=== PATIENT | female | born 1990 | race African-American/Black ===

== ENCOUNTER 2016-06-16 13:24 | Emergency (ER) | payer MEDICAID, OTHER ==
[~2016-06-16] VITALS: Ht 160 cm; Wt 105.0 kg
[~2016-06-16 13:24] MED LIST: IBUP800T23 PO; ROBA750T3 PO; Z.0.NO CURRENT MEDS
[2016-06-16 13:32] VITALS: BP 134/86; PULSE 59; RESP 17; TEMP 98; O2SAT 99
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
== END 2016-06-16 14:40 | disposition home or self-care (01) ==
LOC: NEPE 13:24
DX: O20.0 Threatened abortion (principal); Z3A.01 Less than 8 weeks gestation of pregnancy
CPT/HCPCS: 99283

== ENCOUNTER 2016-07-11 21:29 | Emergency (ER) | payer MEDICAID, OTHER ==
[~2016-07-11] VITALS: Ht 160 cm; Wt 101.0 kg
[2016-07-11 21:31] VITALS: BP 133/67; PULSE 94; RESP 16; TEMP 97.8; O2SAT 96
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
[2016-07-12] MEDS ORDERED: ACETAMINOPHEN 325 MG TAB PO ONE (01:15)
== END 2016-07-12 01:36 | disposition home or self-care (01) ==
LOC: NEPA 21:29
DX: O26.891 Other specified pregnancy related conditions, first trimester (principal); S00.83XA Contusion of other part of head, initial encounter; H11.31 Conjunctival hemorrhage, right eye; Y04.2XXA Assault by strike against or bumped into by another person, initial encounter; Y93.9 Activity, unspecified; Y92.9 Unspecified place or not applicable; Y99.9 Unspecified external cause status; Z33.1 Pregnant state, incidental
CPT/HCPCS: 70450; 70486

== ENCOUNTER 2016-10-01 17:13 | Emergency (ER) | payer MEDICAID, OTHER ==
[~2016-10-01] VITALS: Ht 160 cm; Wt 109.0 kg
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
[2016-10-01 18:36] LABS: BETA HCG QUANT 3824 MIU/ML (0-5)
== END 2016-10-01 19:09 | disposition home or self-care (01) ==
LOC: NEPD 17:13
DX: O20.0 Threatened abortion (principal); Z3A.01 Less than 8 weeks gestation of pregnancy
CPT/HCPCS: 84702; 84703

== ENCOUNTER 2016-10-23 17:12 | Emergency (ER) | payer MEDICAID ==
[2016-10-23 17:13] VITALS: BP 151/89; PULSE 89; RESP 15; TEMP 98.2; O2SAT 98
[2016-10-23 18:38] LABS: BACTERIA, URINE RARE /hpf; BLOOD, URINE LARGE (NEG); COMMENT (UR) CULTURE INDICATED; CULTURE IF INDICATED CULTURE INDICATED; GLUCOSE,URINE NEG (NEG); KETONE, URINE NEG (NEG); MUCUS URINE FEW /lpf (OCC); NITRITE,URINE NEG (NEG); SQUAMOUS EPITHELIAL CELL URINE 8 /hpf (0-5); URINE COLOR YELLOW (YELLW/STRAW)
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
[2016-10-23 21:22] LABS: ALKALINE PHOSPHATASE 64 U/L (45-117); ALT (GPT) 19 U/L (10-53); TOTAL BILIRUBIN ADULT 0.4 MG/DL (0.2-1.0)
[2016-10-23 21:25] LABS: ANION GAP 10 MEQ/L (5-15); AST (GOT) 42 U/L (15-37); BICARBONATE 21.2 MEQ/L (21.0-32.0); BLOOD UREA NITROGEN 6 MG/DL (7-18); CHLORIDE 104 MEQ/L (98-107); GLOMERULAR FILTRATION RATE 135 ML/MIN (>89); SODIUM (NA) 135 MEQ/L (136-145)
[2016-10-23 21:28] LABS: POTASSIUM 4.8 MEQ/L (3.5-5.1)
[2016-10-23 21:34] LABS: BETA HCG QUANT 12459 MIU/ML (0-5)
[2016-10-23 21:43] LABS: AUTOMATED NEUTROPHIL # 6.3 TH/MM3 (1.8-7.7); BASOPHIL # 0.2 TH/MM3 (0-0.2); BASOPHIL % 1.9 % (0.0-2.0); EOSINOPHIL # 0.1 TH/MM3 (0-0.4); EOSINOPHIL % 1.1 % (0.0-4.0); HEMATOCRIT 33.5 % (35.0-46.0); LYMPH % 17.8 % (9.0-44.0); LYMPHOCYTE # 1.5 TH/MM3 (1.0-4.8); MEAN CELL VOLUME 85.8 FL (80.0-100.0); MEAN CORPUSCULAR HEMOGLOBIN 28.8 PG (27.0-34.0); MEAN CORPUSCULAR HGB CONC 33.5 % (32.0-36.0); MONO % 6.3 % (0.0-8.0); NEUT % 72.9 % (16.0-70.0); PLATELET COUNT 256 TH/MM3 (150-450); RED CELL DISTRIBUTION WIDTH 13.6 % (11.6-17.2); WHITE BLOOD COUNT 8.6 TH/MM3 (4.0-11.0)
[2016-10-23] MEDS ORDERED: metroNIDAZOLE 500 MG TAB PO ONE (21:45)
[2016-10-23 21:46] LABS: HEMO FLAGS AUTO DIFF
[2016-10-23 22:10] LABS: PLATELET ESTIMATE SMEAR NORMAL (NORMAL); PLATELET MORPHOLOGY NORMAL (NORMAL); SCAN/DIFF AUTO DIFF CONFIRMED
--- NOTE | 2016-10-23 22:43 | RADRPT ---
EXAM DATE/TIME: 10/23/2016 21:50 [facility] COMPARISON: No previous studies available for comparison. INDICATIONS : Pelvic pain and spotting. LAB(S): Beta-hC,459 MEDICAL HISTORY : . SURGICAL HISTORY : None. ENCOUNTER: Initial ACUITY: 1 day PAIN SCORE: 7/10 LOCATION: Bilateral pelvis MEASUREMENTS: UTERUS: 9.3 x 5.7 x 5.2 cm ENDOMETRIAL STRIPE: 7 mm RIGHT OVARY: 2.0 1.8 x 2.2 cm LEFT OVARY: 5.8 x 3.6 x 3.1 cm FREE FLUID: Yes posterior cul de sac and bilateral adnexas. CROWN RUMP LENGTH: Nonvisualized = WKS DAYS FHR: Nonvisualized BPM FINDINGS: No yolk sac, pole or gestational sac seen within the uterine cavity. 8 x 8 x 14 mm hypoechoic a tahir seen within the canal of the lower body which may represent a small amount of hemorrhage. Right ovary within normal limits. 3.0 x 2.7 x 3.2 cm thickwalled cystic structure is seen of the left ovary. No perceptible yolk sac or pole. Moderate free fluid seen in the cul-de-sac and around both adnexal regions, relatively simple appeari ng. CONCLUSION: An IUP is not visualized and there is a thick walled cystic structure of the left ovary. However, the left ovarian finding is not convincing for an ectopic. A missed or ongoing would be more li angelic. Clinical and beta-hCG followup recommended. Getachew Crowley MD on October 23, 2016 at 22:35 Board Certified Radiologist. This report was verified electronically.
[2016-10-23] MEDS ORDERED: CEPH-460 PO (23:08)
[2016-10-23] MEDS ORDERED: PREN29TA PO (23:08)
[2016-10-24 00:03] LABS: CHLAMYDIA PCR NOT DETECTED (NOT DETECT); NEISSERIA PCR NOT DETECTED (NOT DETECT)
== END 2016-10-23 23:40 | disposition home or self-care (01) ==
LOC: NEPD 17:12
DX: O20.0 Threatened abortion (principal); A59.9 Trichomoniasis, unspecified; O23.41 Unspecified infection of urinary tract in pregnancy, first trimester; B96.89 Other specified bacterial agents as the cause of diseases classified elsewhere; Z3A.00 Weeks of gestation of pregnancy not specified
CPT/HCPCS: 76700; 76817; 80053; 81001; 83690; 84702; 85025; 87086; 87210; 87491; 87591; 99285

== ENCOUNTER 2016-10-25 17:37 | Emergency (ER) | payer MEDICAID ==
[~2016-10-25] VITALS: Ht 170.2 cm; Wt 109.0 kg
[~2016-10-25 17:37] MED LIST changes: +CEPH-460 PO; -IBUP800T23 PO; +PREN29TA PO; -ROBA750T3 PO; -Z.0.NO CURRENT MEDS
[2016-10-25 17:38] VITALS: BP 130/69; PULSE 79; RESP 18; TEMP 98.5; O2SAT 99
--- NOTE | 2016-10-25 18:35 | PD ---
HPI . here for repeat Beta HCG Chief Complaint: Related Problem Time Seen by Provider: 18:35 Travel History International Travel<30 days: No Contact w/Intl Traveler<30days: No Traveled to known affect area: No History of Present Illness HPI 26-year-old female who was seen several days ago and diagnosed with threatened here for repeat beta hCG levels. Patient still admits to some vaginal spotting. She was also diagnosed with trichomoniasis and is taking her medications as prescribed. She has no other complaints. She denies any abdominal pain. PFSH Past Medical History Diminished Hearing: No Immunizations Current: Yes ?: LMP: 08/20/16 : 3 Para: 2 Past Surgical History Abdominal Surgery: Yes Social History Alcohol Use: No Tobacco Use: No Substance Use: No Allergies-Medications (Allergen,Severity, Reaction): Coded Allergies: No Known Allergies (Verified , 10/25/16) Reported Meds & Prescriptions Reported Meds & Active Scripts Active Plus Iron 29-1 mg ( Vit-Iron Carbonyl) 1 Tab Tab 1 Tab PO DAILY Review of Systems General / Constitutional: No: Fever Eyes: No: Visual changes HENT: No: Headaches Cardiovascular: No: Chest Pain or Discomfort Respiratory: No: Shortness of Breath Gastrointestinal: No: Abdominal Pain Genitourinary: No: Dysuria Musculoskeletal: No: Pain Skin: No Rash Neurologic: No: Weakness Psychiatric: No: Depression Endocrine: No: Polydipsia Hematologic/Lymphatic: No: Easy Bruising Physical Exam Narrative GENERAL: AAO x 3, no acute distress, Well-nourished, well-developed patient. SKIN: Warm and dry. No visible rashes or bruising. HEAD: Normocephalic and atraumatic. EYES: No scleral icterus. No injection or drainage. ENT: No nasal drainage noted. Mucous membranes pink. Airway patent. NECK: Supple, trachea midline. No JVD. CARDIOVASCULAR: Regular rate and rhythm without murmurs, gallops, or rubs. RESPIRATORY: Breath sounds equal bilaterally. No accessory muscle use. No rhonchi or rales. GASTROINTESTINAL: Abdomen soft, non-tender, nondistended. EXTREMITIES: No cyanosis or edema. BACK: Nontender without obvious deformity. No CVA tenderness. NEURO: CN II through XII intact, PSYCH: AAO x 3, normal affect. Data Data Last Documented VS Vital Signs Date Time Temp Pulse Resp B/P Pulse Ox O2 Delivery O2 Flow Rate FiO2 10/25/16 17:38 98.5 79 18 130/69 99 Room Air Orders Beta Hcg (Quant/Titer) (10/25/16 18:34) MDM Medical Decision Making Medical Screen Exam Complete: Yes Emergency Medical Condition: Yes Medical Record Reviewed: Yes Differential Diagnosis Threatened , trichomoniasis, missed Narrative Course 26-year-old female here for repeat beta-hCG level. She has no specific complaints today. 2046: labs still pending. Case discussed with Dr. Lang. He will determine patient's disposition. She does have an appt with [facility] bpm developer on Sunday. Patient Instructions: General Instructions Med/Other Pt SpecificInfo: No Change to Meds Disposition: 01 DISCHARGE HOME Condition: Stable Savanah Vera Oct 25, 2016 18:35
[2016-10-25 21:36] LABS: BETA HCG QUANT 10040 MIU/ML (0-5)
--- NOTE | 2016-10-25 21:45 | PD ---
Data Data Last Documented VS Vital Signs Date Time Temp Pulse Resp B/P Pulse Ox O2 Delivery O2 Flow Rate FiO2 10/25/16 17:38 98.5 79 18 130/69 99 Room Air Orders Beta Hcg (Quant/Titer) (10/25/16 18:34) Labs Laboratory Tests Test 10/25/16 19:30 Human Chorionic Gonadotropin, 46571 MIU/ML Quant MDM Medical Record Reviewed: Yes Supervised Visit with YANNI: Yes Narrative Course I, Dr. Lang, have reviewed the advance practice practitioner's documentation and am in agreement, met with the patient face to face, made the diagnosis, and the medical decision making was done by me. *My assessment and Findings: Repeat beta 47051 down [place] [address]. Prior blood types Rh negative. There is no IUP on prior US from 48 hours ago, presumably at 7 weeks [place] [address]. IUP should have been visualized however a 2.7cm in max diameter L ovarian cystic structure is seen. Pt today is asymptomatic and has no TTP in abdomen/pelvis or flank. Ongoing miscarry considered likely with declining beta. Without symptoms today a repeat US unlikely to change disposition and patient has needle straightener appointment in 5 days. We discussed details of work up carefully and patient verbalized understanding. She is ready for discharge. Return precautions were discussed. Diagnosis Primary Impression: Threatened Referrals: Process Engineer Follow up on Sunday as discussed. Patient Instructions: General Instructions Additional Instruction: You have a choice when it comes to health care, and we are glad that you chose [facility]. Hopefully, we have met your expectations on today's visit. You are welcome to return to [facility] at any time, as we are committed to meeting the health care needs of our community. Med/Other Pt SpecificInfo: No Change to Meds Disposition: 01 DISCHARGE HOME Condition: Pradip Webster MD Oct 25, 2016 21:45
== END 2016-10-25 22:15 | disposition home or self-care (01) ==
LOC: NEPD 17:37
DX: O20.0 Threatened abortion (principal); Z3A.00 Weeks of gestation of pregnancy not specified
CPT/HCPCS: 84702; 99281

== ENCOUNTER 2017-05-16 12:21 | Emergency (ER) | payer MEDICAID ==
[~2017-05-16] VITALS: Ht 160 cm; Wt 116.0 kg
[~2017-05-16 12:21] MED LIST changes: -CEPH-460 PO
[2017-05-16 12:29] VITALS: BP 126/86; PULSE 98; RESP 16; TEMP 98.6; O2SAT 100
--- NOTE | 2017-05-16 14:16 | PD ---
HPI Chief Complaint: Cold / Flu Symptoms Time Seen by Provider: 13:25 Travel History International Travel<30 days: No Contact w/Intl Traveler<30days: No Traveled to known affect area: No History of Present Illness HPI 27-year-old female with nasal congestion, cough, sore throat, body aches 2 days. Severity is mild. No aggravating or alleviating factors. Denies headache, neck pain, fever or chills, chest pain, abdominal pain. Patient is 12 weeks . Denies any vaginal bleeding or abdominal pain. PFSH Past Medical History Medical History: Denies Significant Hx Diminished Hearing: No Immunizations Current: Yes ?: LMP: 02/28/17 : 3 Para: 2 Past Surgical History Abdominal Surgery: Yes Social History Alcohol Use: No Tobacco Use: No Substance Use: No Allergies-Medications (Allergen,Severity, Reaction): Coded Allergies: No Known Allergies (Verified Adverse Reaction, Unknown, 05/16/17) Reported Meds & Prescriptions Reported Meds & Active Scripts Active Plus Iron 29-1 mg ( Vit-Iron Carbonyl) 1 Tab Tab 1 Tab PO DAILY Review of Systems Except as stated in HPI: all other systems reviewed are Neg General / Constitutional: No: Fever Eyes: No: Visual changes HENT: Positive: Sore Throat, Congestion Respiratory: Positive: Cough Physical Exam Narrative GENERAL: Alert well-appearing female. SKIN: Warm and dry. HEAD: Normocephalic. EYES: No scleral icterus. No injection or drainage. Nose/throat: Clear nasal discharge. No sinus tenderness. Mild pharyngeal erythema without tonsillar hypertrophy or exudate. NECK: Supple, trachea midline. No JVD or lymphadenopathy. No meningismus. CARDIOVASCULAR: Regular rate and rhythm without murmurs, gallops, or rubs. RESPIRATORY: Breath sounds equal bilaterally. No accessory muscle use. GASTROINTESTINAL: Abdomen soft, non-tender, nondistended. MUSCULOSKELETAL: No cyanosis, or edema. BACK: Nontender without obvious deformity. No CVA tenderness. Data Data Last Documented VS Vital Signs Date Time Temp Pulse Resp B/P (MAP) Pulse Ox O2 Delivery O2 Flow Rate FiO2 05/16/17 12:29 98.6 98 16 126/86 (99) 100 Orders Orders Influenzae A/B Antigen (05/16/17 13:28) [facility] Medical Decision Making Medical Screen Exam Complete: Yes Emergency Medical Condition: Yes Differential Diagnosis URI, influenza, bronchitis, pneumonia Narrative Course 19-year-old female here with mild viral-like illness. Her vital signs are stable. She is nontoxic-appearing. She is 12 weeks and followed by OB /[facility]ERS CL[employer] REPRESENTATIVE. Her flu screen is negative. She will be treated for viral illness instructed to take OTC Tylenol as needed for pain and fever. Stay well hydrated. Diagnosis Primary Impression: URI (upper respiratory infection) Qualified Codes: J06.9 - Acute upper respiratory infection, unspecified; B97.89 - Other viral agents as the cause of diseases classified elsewhere Referrals: Primary Care Physician Additional Instructions: Stay well hydrated by drinking plenty of fluids. Take [id number] Tylenol as needed for pain. Follow-up with her doctor. Disposition: 01 DISCHARGE HOME Condition: Stable Kim Cardenas May 16, 2017 14:16
== END 2017-05-16 14:33 | disposition home or self-care (01) ==
LOC: PHEFT 12:21
DX: O26.891 Other specified pregnancy related conditions, first trimester (principal); J06.9 Acute upper respiratory infection, unspecified; Z3A.12 12 weeks gestation of pregnancy
CPT/HCPCS: 87804; 99283

== ENCOUNTER 2017-09-07 03:50 | Emergency (ER) | payer MEDICAID ==
[~2017-09-07] VITALS: Ht 162.6 cm; Wt 115.7 kg
[2017-09-07] MEDS ORDERED: CYCL5TAB PO (05:17)
--- NOTE | 2017-09-07 05:17 | PD ---
HPI Chief Complaint back pain Date Seen: Sep 07, 2017 Time Seen: 05:00 Travel History International Travel<30 Days: No Contact w/Intl Traveler<30Days: No Known Affected Area: No History of Present Illness HPI pt. is a @ 28 2/7 weeks present w/ c/o back pain. pt. was awaken w/ sharp low back pain that moved up her back. pt. was not moving , and caused her difficulties w/ walking. pt. has had on one other occasion before today, but resolved. called her when happened, and advised to try tylenol w/o result. pt. denies contractions, +FM, no lof/vb. pain resolved now. Weeks Gestation: 28 Para: 2 : 3 History Past Medical History Medical History: Denies Significant Hx Obstetric History Obstetric History , s/p x 2 Past Surgical History Surgical History: No Previous Surgery Family History Family History: Negative Social History Alcohol Use: No Tobacco Use: No Substance Abuse: No Allergies-Medications (Allergen,Severity, Reaction): Coded Allergies: No Known Allergies (Verified Adverse Reaction, Unknown, 09/07/17) Home Meds Active Scripts Cyclobenzaprine (Flexeril) 5 Mg Tab, 5 MG PO TID Y for PAIN SCALE 5 TO 10, #30 TAB 0 Refills Prov:Nick Glover Jr., MD 09/07/17 Vit-Iron Carbonyl ( Plus Iron 29-1 mg) 1 Tab Tab, 1 TAB PO DAILY for Nutritional Supplement, #30 TAB 0 Refills Prov:Liat Eli MD 10/23/16 Review of Systems Except as stated in HPI: all other systems reviewed are Neg Physical Exam Narrative GENERAL: Well-nourished, well-developed patient. SKIN: Warm and dry. HEAD: Normocephalic and atraumatic. EYES: No scleral icterus. No injection or drainage. ENT: No nasal drainage noted. Mucous membranes pink. Airway patent. NECK: Supple, trachea midline. No JVD. CARDIOVASCULAR: Regular rate and rhythm without murmurs, gallops, or rubs. RESPIRATORY: Breath sounds equal bilaterally. No accessory muscle use. BREASTS: Bilateral exam showed no masses , no retractions, no nipple discharge. ABDOMEN/GI: Abdomen soft, non-tender, bowel sounds present, no rebound, no guarding Gravid GENITOURINARY: Uterine Contractions: none FHT's: Category: 1 Reactive: + Variability: mod EXTREMITIES: No cyanosis or edema. BACK: Nontender without obvious deformity. No CVA tenderness. NEUROLOGICAL: Awake and alert. Motor and sensory grossly within normal limits. Five out of 5 muscle strength in all muscle groups. Normal speech. Data Data Vital Signs Reviewed: Yes [facility] Medical Record Reviewed: Yes Plan pt. to be d/c to home. pt. w/ most probable paraspinal muscle spasm. condition d/w pt. pt. to have flexeril 5mg q8 hours prn. pt. also counseled on girdle. all ? answered. pt. given precautions for return. f/u as sched. Diagnosis Diagnosis: Primary Impression: Back pain affecting Additional Impression: 28 weeks gestation of Disposition: 01 DISCHARGE HOME Scripts Cyclobenzaprine (Flexeril) 5 Mg Tab 5 MG PO TID Y for PAIN SCALE 5 TO 10, #30 TAB 0 Refills Prov: Nick Glover Jr., MD 09/07/17 Nick Glover Jr., MD Sep 07, 2017 05:17
[2017-09-07 05:30] LABS: BILIRUBIN, URINE NEG (NEG); BLOOD, URINE NEG (NEG); GLUCOSE,URINE NEG (NEG); KETONE, URINE NEG (NEG); NITRITE,URINE NEG (NEG); SQUAMOUS EPITHELIAL CELL URINE 3 /hpf (0-5); URINE COLOR COLORLESS (YELLW/STRAW); URINE LEUKOCYTE ESTERASE NEG (NEG)
== END 2017-09-07 06:14 | disposition home or self-care (01) ==
LOC: HOBED 03:50
DX: O26.893 Other specified pregnancy related conditions, third trimester (principal); M54.5 Low back pain; Z3A.28 28 weeks gestation of pregnancy
CPT/HCPCS: 81001; 99283

== ENCOUNTER 2017-10-17 02:16 | Emergency (ER) | payer MEDICAID ==
[~2017-10-17 02:16] MED LIST changes: +CYCL5TAB PO
[2017-10-17 03:39] LABS: BACTERIA, URINE OCC /hpf; BILIRUBIN, URINE NEG (NEG); BLOOD, URINE NEG (NEG); GLUCOSE,URINE TRACE mg/dL (NEG); HYALINE CAST, URINE 2 /lpf (RARE); KETONE, URINE TRACE mg/dL (NEG); MUCUS URINE FEW /lpf (OCC); NITRITE,URINE NEG (NEG); PH, URINE 6.5 (5.0-8.5); SQUAMOUS EPITHELIAL CELL URINE 48 /hpf (0-5); TRANSITIONAL EPI CELLS, URINE <1 /hpf; URIC ACID CRYSTALS, URINE FEW /hpf; URINE COLOR DARK-YELLOW (YELLW/STRAW); URINE LEUKOCYTE ESTERASE LARGE (NEG); WHITE BLOOD CELL CLUMPS FEW
[2017-10-17] MEDS ORDERED: ONDANSETRON ODT 4 MG TAB PO ONE (03:45)
--- NOTE | 2017-10-17 03:48 | PD ---
HPI Chief Complaint back and abdominal pain Date Seen: October 17, 2017 Time Seen: 03:42 Travel History International Travel<30 Days: No Contact w/Intl Traveler<30Days: No Known Affected Area: No History of Present Illness HPI pt. is a 27 y/o @ 34 weeks present w/ upper back pain and abdominal pain. pt. dx w/ gall stones and eat a fatty meal. pt. states after ate had abdominal pain now resolving and n/v. pt. also w/ upper back pain. +FM, no lof/vb, no ctxs. Weeks Gestation: 34 Para: 2 : 3 History Past Medical History Narrative Medical gall stones Obstetric History Obstetric History , s/p x 2 Past Surgical History Surgical History: No Previous Surgery Family History Family History: Negative Social History Alcohol Use: No Tobacco Use: No Substance Abuse: No Allergies-Medications (Allergen,Severity, Reaction): Coded Allergies: No Known Allergies (Verified Adverse Reaction, Unknown, 09/07/17) Home Meds Active Scripts Cyclobenzaprine (Flexeril) 5 Mg Tab, 5 MG PO TID Y for PAIN SCALE 5 TO 10, #30 TAB 0 Refills Prov:Nick Glover Jr., MD 09/07/17 Vit-Iron Carbonyl ( Plus Iron 29-1 mg) 1 Tab Tab, 1 TAB PO DAILY for Nutritional Supplement, #30 TAB 0 Refills Prov:Liat Eli MD 10/23/16 Review of Systems Except as stated in HPI: all other systems reviewed are Neg Physical Exam Narrative GENERAL: Well-nourished, well-developed patient. SKIN: Warm and dry. HEAD: Normocephalic and atraumatic. EYES: No scleral icterus. No injection or drainage. ENT: No nasal drainage noted. Mucous membranes pink. Airway patent. NECK: Supple, trachea midline. No JVD. CARDIOVASCULAR: Regular rate and rhythm without murmurs, gallops, or rubs. RESPIRATORY: Breath sounds equal bilaterally. No accessory muscle use. BREASTS: Bilateral exam showed no masses , no retractions, no nipple discharge. ABDOMEN/GI: Abdomen soft, non-tender, bowel sounds present, no rebound, no guarding Gravid Uterine Contractions: none FHT's: Category: 1 Reactive: + Variability: mod EXTREMITIES: No cyanosis or edema. BACK: Nontender without obvious deformity. No CVA tenderness. NEUROLOGICAL: Awake and alert. Motor and sensory grossly within normal limits. Five out of 5 muscle strength in all muscle groups. Normal speech. Data Data Vital Signs Reviewed: Yes Orders Orders Urinalysis - C+S If Indicated (10/17/17 03:08) Ondansetron Odt (Zofran Odt) (10/17/17 03:45) Keeper Head Clear For Discharge (10/17/17 ) Urine Culture (10/17/17 02:45) Labs Laboratory Tests Test 10/17/17 02:45 Urine Color DARK-YELLOW Urine Turbidity CLOUDY Urine pH 6.5 Urine Specific [place] 1.029 Urine Protein 30 Urine Glucose (UA) TRACE Urine Ketones TRACE Urine Occult Blood NEG Urine Nitrite NEG Urine Bilirubin NEG Urine Urobilinogen 4.0 Urine Leukocyte Esterase LARGE Urine RBC 3 Urine WBC 14 Urine WBC Clumps FEW Urine Squamous Epithelial Cells 48 Urine Transitional Epithelial Cells <1 Urine Uric Acid Crystals FEW Urine Bacteria OCC Urine Hyaline Casts 2 Urine Mucus FEW Urine Yeast (Budding) FEW Microscopic Urinalysis Comment CULTURE INDICATED Date/Time Source Procedure Growth Status 10/17/17 02:45 Urine Clean Catch Urine Culture Pending Received MDM Medical Record Reviewed: Yes Plan pt. to be d/c to home. pt. receive zofran w// resolution of n/v. pt. given precautions for return. all ? answered. f/u as sched. Diagnosis Diagnosis: Primary Impression: Gall bladder disease Additional Impressions: Nausea and vomiting during Back pain affecting in third trimester Disposition: 01 DISCHARGE HOME Condition: Stable Patient Instructions: General Instructions, Movement (ED), Abdominal Pain in (ED) Additional Instructions: DRINK PLENTY OF WATER DURING THE DAY, RETURN IF LEAKING FLUID, VAGINAL BLEEDING , STRONG CONTRACTIONS OR DECREASE IN MOVEMENT. FOLLOW UP WITH YOUR OB DR IN AM AND KEEP ALL UPCOMING OB APPTS. Departure Forms: Tests/Procedures Nick Glover Jr., MD October 17, 2017 03:48
== END 2017-10-17 04:14 | disposition home or self-care (01) ==
LOC: HOBED 02:16
DX: O26.613 Liver and biliary tract disorders in pregnancy, third trimester (principal); K82.9 Disease of gallbladder, unspecified; O21.9 Vomiting of pregnancy, unspecified; O26.893 Other specified pregnancy related conditions, third trimester; M54.89 Other dorsalgia; Z3A.34 34 weeks gestation of pregnancy; Z79.899 Other long term (current) drug therapy
CPT/HCPCS: 81001; 87086; 99283